=== PATIENT | female | born 1985 | race African-American/Black ===

== ENCOUNTER 2018-01-10 21:46 | Emergency (ER) | payer SELFPAY ==
[~2018-01-10] VITALS: Ht 157.5 cm; Wt 58.0 kg
[2018-01-10 23:58] LABS: CLARITY URINE CLOUDY (CLEAR); COLOR URINE DARK YELLOW (YELLOW); KETONES URINE TRACE (NEGATIVE); LEUKOCYTE ESTERASE URINE 1+ (NEGATIVE); NITRITE URINE NEGATIVE (NEGATIVE); OCCULT BLOOD URINE TRACE (NEGATIVE); PROTEIN URINE 1+ (NEGATIVE); SPECIFIC GRAVITY URINE 1.038 (1.005-1.030)
[2018-01-11] MEDS ORDERED: TETANUS, DIPHTHERIA, PERTUSSIS VAC/PF 0.5ML (>7YR OLD) IM ONE (03:15)
[2018-01-11] MEDS ORDERED: IBUPROFEN 600MG TABLET PO ONE (03:15)
[2018-01-11] MEDS ORDERED: BACITRACIN ZINC OINT UDPKT TOP ONE (03:15)
[2018-01-11 06:21] VITALS: BP 113/69
== END 2018-01-11 06:37 | disposition home or self-care (01) ==
LOC: ER 21:46
DX: N76.0 Acute vaginitis (principal)
CPT/HCPCS: 56405; 81003; 81025; 87077; 87086; 87186; 90471; 90715; 99284; Z7610